=== PATIENT | male | born 2005 | race Caucasian/White ===

== ENCOUNTER 2025-01-05 22:50 | Emergency (ER) | payer OTHER, SELFPAY ==
[2025-01-05 22:52] VITALS: BP 104/81; PULSE 68; RESP 18; TEMP 36.9; O2SAT 99
--- NOTE | 2025-01-06 00:52 | ED_ITS ---
HPI - Wound/Laceration General Chief Complaint: Wound/Laceration Stated Complaint: finger laceration Time Seen by Provider: 01/06/25 00:43 Source: patient Mode of arrival: ambulatory Limitations: no limitations History of Present Illness HPI narrative: This is a 19-year-old male that presents to the emergency department for laceration to the left 5th finger. Sustained a couple of hours prior to arrival. He was originally seen in urgent care and the laceration was glued, this has already opened up. He is up to date on tetanus Related Data Allergies Allergy/AdvReac Type Severity Reaction Status Date / Time amoxicillin Allergy Severe Hives Verified 01/06/25 00:10 Penicillins Allergy Severe Hives Verified 01/06/25 00:10 Review of Systems Review of Systems: All systems reviewed & are unremarkable except as noted in HPI and below Exam Narrative: GENERAL: Well-appearing, well-nourished, and in no acute distress. HEAD: Normocephalic, atraumatic. EYES: EOMI. EXTREMITIES: Normal range of motion. No edema. 1.5cm linear laceration into subcutaneous tissue to the left 5th finger palmar surface proximal phalanx SKIN: Warm, dry, no rash. NEURO: No focal deficits. Alert and oriented x3. PSYCH: Normal mood and affect Course Vital Signs Vital signs: Vital Signs Temperature 98.5 F 01/05/25 22:52 Pulse Rate 68 01/05/25 22:52 Respiratory Rate 18 01/05/25 22:52 Blood Pressure 104/81 01/05/25 22:52 Pulse Oximetry 99 01/05/25 22:52 Oxygen Delivery Room Air 01/05/25 22:52 Temperature 98.5 F 01/05/25 22:52 Pulse Rate 68 01/05/25 22:52 Respiratory Rate 18 01/05/25 22:52 Blood Pressure 104/81 01/05/25 22:52 Pulse Oximetry 99 01/05/25 22:52 Oxygen Delivery Room Air 01/05/25 22:52 Procedures Laceration Laceration 1: Date: 01/06/25 Site: hand Side (If applicable): left Size (cm): 1.5 Description: linear Depth: simple, single layer Local Anesthetic: lidocaine 1% Amount of anesthesia used (mL): 2 Pre-repair: wound explored and irrigated ====== Skin Level ====== Skin layer closed with: nylon Size (cm): 4-0 Number of sutures: 2 Technique: simple, interrupted ====== Subcutaneous Layer ====== ====== Muscle Layer ====== ====== Tendon Layer ====== MDM - Wound/Laceration MDM Narrative Medical decision making narrative: Patient presents emergency department for laceration of the left 5th finger. He had originally been seen at urgent care and the laceration was glued. The wound already opened back up. His wound was irrigated and closed with sutures. Reports he is up-to-date on tetanus vaccination. He is to follow up with primary provider. He was given warnings to return to the ER Differential Diagnosis Differential diagnosis: Likely laceration, abrasion and avulsion of skin Critical Care Time Critical Care Time Critical Care Time: No Discharge Plan Discharge Clinical Impression: Laceration Patient Disposition: Home Condition: Stable Instructions: Antibiotic Form, Care For Your Stitches (ED), Laceration (ED) Additional Instructions: Return to the emergency department if you experience fever, redness or swelling of your wound, abnormal drainage from your wound, or any other symptoms that are concerning to you. Apply antibiotic ointment daily. Do not soak the wound. Clean with mild soap and water daily Follow-up with your primary care doctor for suture removal in 10-14 days. Patient Language: [place] Follow-up/Referrals: PHYSICIAN,AIR QUALITY CONSULTANT [Primary Care Provider, Internal Medicine] Kourtney Raza DO [Physician, Family Practice]
[2025-01-06] MEDS: LIDOCAINE 1% LOCAL INJ 10 ML VIAL (02:23)
== END 2025-01-06 02:23 | disposition home or self-care (01) ==
PROVIDERS: Emergency Provider Physician Assistant
DX: S61.217A Laceration without foreign body of left little finger without damage to nail, initial encounter (principal); X58.XXXA Exposure to other specified factors, initial encounter
CPT/HCPCS: 12001; 99282; J2003

== ENCOUNTER 2025-01-17 12:27 | Emergency (ER) | payer OTHER, SELFPAY ==
[2025-01-17 12:39] VITALS: BP 111/50; PULSE 69; RESP 18; TEMP 36.8; O2SAT 97
--- NOTE | 2025-01-17 13:08 | ED.GENADULT ---
HPI - General Adult General Chief complaint: Wound/Laceration Stated complaint: SUTURE REMOVAL Time Seen by Provider: 01/17/25 12:58 History of Present Illness HPI narrative: Patient 19-year-old gentleman who presents emergency department with chief complaint of suture removal. Patient reports that he had sutures placed on the 31st on his 5th digit of his left hand patient states that the wound is healed he would like his sutures removed. Related Data Allergies Allergy/AdvReac Type Severity Reaction Status Date / Time amoxicillin Allergy Severe Hives Verified 01/17/25 12:28 Penicillins Allergy Severe Hives Verified 01/17/25 12:28 ceftriaxone (From Rocephin) Allergy Nausea Verified 01/17/25 12:28 Review of Systems Review of Systems: A 10 system review of systems was completed on the patient and is negative except for what is stated in the HPI. Nursing and ancillary documentation was reviewed. Exam Narrative: GENERAL: Well-appearing, well-nourished, and in no acute distress. HEAD: Normocephalic, atraumatic. EYES: PERRLA and EOMI. ENT: Nares clear, no rhinorrhea or epistaxis. Mucous membranes moist. NECK: Supple. CHEST: Clear to auscultation. No respiratory distress. HEART: Regular rate and rhythm. No murmur heard. Normal peripheral pulses. ABDOMEN: Soft, nontender, nondistended, normal active bowel sounds. EXTREMITIES: Normal range of motion. No edema. SKIN: Warm, dry, no rash. Healed laceration at the base of the 5th digit of the left hand [address] NEURO: No focal deficits. Alert and oriented x3. PSYCH: Normal mood and affect. Course Vital Signs Vital signs: Vital Signs Temperature 36.8 C 01/17/25 12:39 Pulse Rate 69 01/17/25 12:39 Respiratory Rate 18 01/17/25 12:39 Blood Pressure 111/50 L 01/17/25 12:39 Pulse Oximetry 97 01/17/25 12:39 Temperature 36.8 C 01/17/25 12:39 Pulse Rate 69 01/17/25 12:39 Respiratory Rate 18 01/17/25 12:39 Blood Pressure 111/50 L 01/17/25 12:39 Pulse Oximetry 97 01/17/25 12:39 Medical Decision Making [facility] Narrative Medical decision making narrative: The patient's wound has healed at this time sutures will be removed using a set of pickups and scissors the 2 sutures were removed without difficulty the wound stayed well approximated Vital Signs Vital Signs: Vital Signs Temperature 36.8 C 01/17/25 12:39 Pulse Rate 69 01/17/25 12:39 Respiratory Rate 18 01/17/25 12:39 Blood Pressure 111/50 L 01/17/25 12:39 Pulse Oximetry 97 01/17/25 12:39 Temperature 36.8 C 01/17/25 12:39 Pulse Rate 69 01/17/25 12:39 Respiratory Rate 18 01/17/25 12:39 Blood Pressure 111/50 L 01/17/25 12:39 Pulse Oximetry 97 01/17/25 12:39 Discharge Plan Discharge Clinical Impression: Encounter for removal of sutures Patient Disposition: Home Condition: Stable Instructions: Antibiotic Form, Stitches Removal (ED) Patient Language: [place] Follow-up/Referrals: Conrad Huertas MD [Physician, Family Practice] UNKNOWN,DOCTOR [Non-Staff] Time of Disposition: 13:10
== END 2025-01-17 13:43 | disposition home or self-care (01) ==
PROVIDERS: Emergency Provider Emergency Medicine
DX: S61.412D Laceration without foreign body of left hand, subsequent encounter (principal); X58.XXXD Exposure to other specified factors, subsequent encounter
CPT/HCPCS: 15853; 99282